=== PATIENT | male | born 1975 | race American Indian/Alaskan Native ===

== ENCOUNTER 2019-08-27 02:29 | Emergency (ER) | payer SELFPAY ==
[2019-08-27 02:55] VITALS: BP 115/71
--- NOTE | 2019-08-27 03:01 | Emergency Department Report ---
Chief Complaint: Extremity Injury, Upper Stated Complaint: LEFT FOOT PAIN Time Seen by Provider: 08/27/19 02:58 - HPI History of Present Illness: Patient is a 43-year-old male presents emergency room complaints of left foot swelling and pain that began today. He states that he walks on his feet a lot and attributes it to his constant walking. He denies any fall or injury. He denies any numbness, weakness, increased warmth, erythema, skin changes, nausea, vomiting, diarrhea, any other symptoms. He denies any past medical history or allergies to medications. He has never injured this foot in the past. Vitals are normal On exam: No bony tenderness to palpation of the bilateral feet or toes or ankles, there is no edema present, no erythema, no skin changes of the foot, no increased warmth, full range of motion of the bilateral ankles bilateral feet, bilateral toes, neurovascularly intact Patient has had no acute traumatic injury There is no signs of swelling There are no signs of infection or gout no signs of DVT Discussed supportive care and symptomatic treatment with patient Patient referred to a primary care physician Medical screening examination performed and there is no threat to life or limb at this time - Exam Vital Signs: Vital Signs 08/27/19 02:36 Temperature 98.1 F Pulse Rate 89 Respiratory 16 Rate Blood Pressure 115/71 O2 Sat by Pulse 96 Oximetry MSE screening note: Focused history and physical exam performed. ED Disposition for [facility] Clinical Impression: Left foot pain Disposition: Z-07 MED SCREENING EXAM-LEFT Is pt being admited?: No Does the pt Need Aspirin: No Condition: Stable Instructions: Arthralgia (ED), RICE Therapy (ED) Additional Instructions: May take Tylenol or ibuprofen as needed for discomfort. May use ice for 15 minutes at a time, rest, elevation of the legs. Follow-up with a primary care doctor. Return to the emergency room for any new or worsening symptoms. Referrals: RAMSEY SULLIVAN MD [Staff Physician] - 3-5 Days [facility] [Provider Group] - 3-5 Days [facility] [Outside] - 3-5 Days [facility] [Outside] - 3-5 Days Time of Disposition: 03:00
== END 2019-08-27 03:15 | disposition left against medical advice (07) ==
LOC: ED 02:29
DX: M79.672 Pain in left foot (principal)
CPT/HCPCS: 99283